=== PATIENT | female | born 1980 | race African-American/Black ===

== ENCOUNTER 2017-04-05 05:35 | Day surgery (SDC) | payer OTHER ==
[~2017-04-05 05:35] MED LIST: ACET-159 PO; ASPI1TAB30 PO; HYDR-2758 PO; IBUP-1060 PO
[2017-04-05] MEDS ORDERED: IV RINGERS,LACTATED 1000ML 1,000 ML IV SCH (06:06)
[2017-04-05] MEDS ORDERED: LIDOCAINE 1% 1 ML SYRINGE. ID PRN (06:15)
[2017-04-05] MEDS ORDERED: fentaNYL PF VIAL 100 MCG/2 ML VIAL IV PRN (06:15)
[2017-04-05] MEDS ORDERED: MIDAZOLAM HCL/PF 2 MG/2 ML VIAL. IV PRN (06:15)
[2017-04-05] MEDS ORDERED: MIDAZOLAM HCL/PF 2 MG/2 ML VIAL. ONE (07:09)
[2017-04-05] MEDS ORDERED: ROCURONIUM 50 MG/5 ML VIAL. ONE (07:09)
[2017-04-05] MEDS ORDERED: ONDANSETRON PF 4 MG/2 ML VIAL. ONE (07:09)
[2017-04-05] MEDS ORDERED: DEXAMETHASONE SOD PHOS 20 MG/5 ML VIAL. ONE (07:09)
[2017-04-05] MEDS ORDERED: DESFLURANE 61 TO 120 MINUTES IH ONE (07:09)
[2017-04-05] MEDS ORDERED: LIDOCAINE 2% PF Vial for OR 5 ML VIAL. ONE (07:09)
[2017-04-05] MEDS ORDERED: PROPOFOL 20 ML IV ONE (07:09)
[2017-04-05] MEDS ORDERED: fentaNYL PF VIAL 100 MCG/2 ML VIAL ONE (07:09)
[2017-04-05] MEDS ORDERED: BUPIVACAINE-EPI 0.5%-1:200000 50 ML VIAL. ONE (07:21)
[2017-04-05 07:29] LABS: NEG OBC UR NEG; POS OBC UR POS
--- NOTE | 2017-04-05 07:41 | PDOC1 ---
History and Physical Date of Admission Date of Admission DATE: 04/05/17 TIME: 07:35 Identification/Chief Complaint Chief Complaint AUB Problems: Source Source: Caregiver History of Present Illness History of Present Illness Greater than 6 months of AUB Past Medical History Cardiovascular: No pertinent hx Pulmonary: No pertinent hx GI: No pertinent hx Heme/Onc: No pertinent hx Hepatobiliary: No pertinent hx Psych: No pertinent hx Rheumatologic: No pertinent hx Infectious disease: No pertinent hx ENT: No pertinent hx Renal/: No pertinent hx Endocrine: No pertinent hx Dermatology: No pertinent hx Past Surgical History Past Surgical History: Tonsillectomy Social History Smoke: No ALCOHOL: none Current Medications Current Medications Current Medications Midazolam HCl (Versed) 2 mg PRN 1X PRN IV PRIOR TO PROCEDURE; Start 04/05/17 at 06:15; Stop 04/06/17 at 06:14 Fentanyl Citrate (Fentanyl 2ml Vial) 25 mcg PRN Q5MIN PRN IV X 2 DOSES FOR PAIN ; Start 04/05/17 at 06:15; Stop 04/06/17 at 06:14 Fentanyl Citrate (Fentanyl 2ml Vial) 50 mcg PRN Q5MIN PRN IV X 2 DOSES FOR PAIN ; Start 04/05/17 at 06:15; Stop 04/06/17 at 06:14 Ringer's Solution 1,000 ml @ 125 mls/hr Q8H IV ; Start 04/05/17 at 06:06; Stop 04/05/17 at 18:05 Lidocaine HCl 2 ml 1X PRN PRN ID IV START; Start 04/05/17 at 06:15; Stop at 06:14 Dexamethasone Sodium Phosphate (Decadron) 20 mg STK-MED ONCE .ROUTE ; Start 09/10 at 07:09; Stop 04/05/17 at 07:10; Status DC Ondansetron HCl (Zofran) 4 mg STK-MED ONCE .ROUTE ; Start 04/05/17 at 07:09; Stop 04/05/17 at 07:10; Status DC Propofol 20 ml @ As Directed STK-MED ONCE IV ; Start 04/05/17 at 07:09; Stop 09/10 at 07:10; Status DC Lidocaine HCl (Lidocaine Pf 2% Vial) 5 ml STK-MED ONCE .ROUTE ; Start 04/05/17 at 07:09; Stop 04/05/17 at 07:10; Status DC Desflurane (Suprane) 60 ml STK-MED ONCE IH ; Start 04/05/17 at 07:09; Stop 04/05 at 07:10; Status DC Midazolam HCl (Versed) 2 mg STK-MED ONCE .ROUTE ; Start 04/05/17 at 07:09; Stop 04/05/17 at 07:10; Status DC Rocuronium Mittie (Zemuron) 50 mg STK-MED ONCE .ROUTE ; Start 04/05/17 at 07:09 ; Stop 04/05/17 at 07:10; Status DC Fentanyl Citrate (Fentanyl 2ml Vial) 100 mcg STK-MED ONCE .ROUTE ; Start at 07:09; Stop 04/05/17 at 07:10; Status DC Bupivacaine HCl/ Epinephrine Bitart (Marcaine-Epi 0.5%-1:[id number]) 50 ml STK-MED ONCE .ROUTE ; Start 04/05/17 at 07:21; Stop 04/05/17 at 07:22; Status DC Active Scripts Active Reported Midol Caplet (Acetaminophn/Pyril Mal/Caffein) 1 Each Tablet 1 Each PO PRN PRN Excedrin Migraine Caplet (Aspirin/Acetaminophen/Caffeine) 1 Each Tablet 1 Each PO PRN PRN Hydrocodone-Apap 5-325 (Hydrocodone Bit/Acetaminophen) 1 Each Tablet 1 Tab PO PRN Q6HRS PRN Ibuprofen 800 Mg Tablet 800 Mg PO PRN TID PRN Allergies Allergies: Coded Allergies: cefaclor (Verified Allergy, Intermediate, Hives, 04/05/17) Physical Exam General: Alert, Oriented X3, Cooperative, No acute distress HEENT: PERRLA Lungs: Clear to auscultation, Normal air movement Heart: RRR Breasts: Normal, Rt breast nml w/o mass, Lt breast nml w/o mass, Nipples normal Abdomen: Normal bowel sounds, Soft, No tenderness, No hepatosplenomegaly, No masses Male Genitals Exam: normal genitalia, normal prostate PELVIC: Nml ext genitalia, Nml ext vulva, Nml ext vagina, Nml ext cervic, Nml ext uterus Extremities: No clubbing, No cyanosis, No edema, Normal pulses, No tenderness/ swelling Skin: No rashes, No breakdown, No significant lesion Neuro: Normal gait, Normal speech, Strength at 5/5 X4 ext, Normal tone, Sensation intact, Cranial nerves 3-12 NL, Reflexes 2+ Vitals Vitals Vital Signs Date Time Temp Pulse Resp B/P (MAP) Pulse Ox O2 Delivery O2 Flow Rate FiO2 04/05/17 06:18 97.4 89 16 135/65 97 Room Air 97.4 Labs Labs Laboratory Tests Test 04/05/17 06:00 Urine Test Negative (NEG) Laboratory Tests Test 04/05/17 06:00 Urine Test Negative (NEG) VTE Prophylaxis Ordered VTE Prophylaxis Devices: Yes VTE Pharmacological Prophylaxi: No Assessment/Plan Assessment/Plan AUB Diagnostic hysteroscopy D devin C ADWOA COELHO MD Apr 05, 2017 07:41
[2017-04-05] MEDS ORDERED: PHENYLEPHRINE in 0.9% NACL PF 1 MG/10 ML DISP.SYRIN. IV ONE (08:05)
--- NOTE | 2017-04-05 08:56 | PDOC ---
BRIEF OPERATIVE NOTE Pre-Op Diagnosis AUB Post-Op Diagnosis Same Procedure Performed Diagnostic hysteroscopy D and C Surgeon Farheen Anesthesia Type: General Blood Loss 23cc Specimens Obtained EMC Complications None ADWOA COELHO MD Apr 05, 2017 08:56
[2017-04-05] MEDS: fentaNYL PF VIAL 100 MCG/2 ML VIAL IV PRN ×2 (09:00→09:07)
[2017-04-05] MEDS ORDERED: HYDROcodone/APAP 5/325MG 1 TAB TABLET PO ONE (09:15)
[2017-04-05 09:59] VITALS: BP 140/100
--- NOTE | 2017-04-06 11:50 | PATHOLOGY ---
PATHOLOGY REPORT * * * * * * * * FINAL DIAGNOSIS: Endometrium "endometrial": - Polypoid fragments of disordered proliferative phase endometrium without any evidence of hyperplasia or malignancy. ([facility]; 04/06/2017) REPORT ELECTRONICALLY SIGNED BY: Toni Zafar M.D. DATE/TIME: 04/06/2017 11:50 * * * * * * * * GROSS PATHOLOGY: Received in formalin labeled "Kristina Barnes, endometrial," are several segments of red-cintron membranous tissue admixed with mucoid material measuring 1.0 x 0.6 x 0.2 cm in aggregate dimensions. The specimen is submitted entirely in cassette A1. ([facility]; 04/05/17) INITIAL CPT CODE(S): A; 41508 Professional services performed [place] [facility] [address] Technical services performed by [facility] at [address] [place] [address]. SPECIMEN(S) RECEIVED: A.Endometrial CLINICAL HISTORY: Menorrhagia PATIENT: KRISTINA BARNES /AGE: 210/29/1980 (Age: 36) PATIENT #: [id number] ALT CASE #: SPECIMEN COLLECTION DATE: 04/05/2017 SPECIMEN RECEIVED DATE: 04/05/2017 [facility] - [address] [place] [address] - PHONE: [phone] * * * END OF REPORT * * *
== END 2017-04-05 10:30 | disposition home or self-care (01) ==
LOC: SURG 05:35
PROVIDERS: ATTEND Specialist
DX: N84.0 Polyp of corpus uteri (principal); F17.200 Nicotine dependence, unspecified, uncomplicated; Z86.69 Personal history of other diseases of the nervous system and sense organs; Z72.89 Other problems related to lifestyle; Z88.1 Allergy status to other antibiotic agents
CPT/HCPCS: 58558; 81025; 88305; C1769; J1100; J2001; J2250; J2370; J2405; J2704; J3010; J7030; J7120

== ENCOUNTER → 2018-03-26 | Outpatient (CLI) | payer OTHER ==
[2018-03-26 09:41] LABS: ANION GAP 7 (6-14); BLOOD UREA NITROGEN 10 mg/dL (7-20); CALCIUM 8.7 mg/dL (8.5-10.1); CARBON DIOXIDE 28 mmol/L (21-32); CHLORIDE 104 mmol/L (98-107); CREATININE 0.9 mg/dL (0.6-1.0); GFR 85.7; GLUCOSE 84 mg/dL (70-99); MAGNESIUM 1.9 mg/dL (1.8-2.4); POTASSIUM 3.6 mmol/L (3.5-5.1); SODIUM 139 mmol/L (136-145)
== END | disposition home or self-care (01) ==
LOC: LAB 08:58
DX: I49.3 Ventricular premature depolarization (principal); Z87.891 Personal history of nicotine dependence
CPT/HCPCS: 36415; 80048; 83735